=== PATIENT | female | born 1985 | race Caucasian/White ===

== ENCOUNTER 2018-12-22 08:15 | Outpatient (RCR) | payer OTHER | END 2019-03-03 15:41 | LOC: WSOH 08:15 | DX: S46.811D Strain of other muscles, fascia and tendons at shoulder and upper arm level, right arm, subsequent encounter (principal); S16.1XXD Strain of muscle, fascia and tendon at neck level, subsequent encounter; W18.30XD Fall on same level, unspecified, subsequent encounter; Y93.01 Activity, walking, marching and hiking; Y99.9 Unspecified external cause status; K21.9 Gastro-esophageal reflux disease without esophagitis ==

== ENCOUNTER 2019-09-02 14:00 | Outpatient (RCR) | payer BC | END 2019-09-17 11:27 | disposition home or self-care (01) | LOC: WSC 14:00 | DX: M75.41 Impingement syndrome of right shoulder (principal); Z87.81 Personal history of (healed) traumatic fracture ==

== ENCOUNTER → 2024-02-18 | Outpatient (CLI) | payer BC | LOC: MC.RAD 08:49 | DX: Z12.31 Encounter for screening mammogram for malignant neoplasm of breast (principal) ==